=== PATIENT | female | born 1940 | race Caucasian/White ===

== ENCOUNTER 2025-03-22 08:07 | Outpatient (REF) | payer MEDICARE, SELFPAY ==
--- OUTSIDE RECORDS SUMMARY | 2025-03-22 08:12 | XMS_ITS | Clinical Summary ---
Author Organization [address] [place] [address] [place] [phone] Phone Care Team Providers Care Fish Hatchery Assistant Name Role Phone Truman Lassiter MD Primary Care Provider Allergies Active Allergy Reactions Criticality Noted Date Comments Atorvastatin 02/07/2020 Other Reaction(s): Hives/Urticaria Oxycodone-Acetaminophen Nausea And Vomiting 09/2019 Other Reaction(s): Hives/Urticaria Propofol High 02/07/2020 Other Reaction(s): Hives/Urticaria Medications alirocumab (Praluent Pen) 75 mg/mL pen injector Inject 1 mL into the skin every 14 days. 11/27/2023 Active clopidogreL (PLAVIX) 75 mg tablet Take 1 tablet (75 mg total) by mouth 1 (one) time each day. 03/23/2020 Active famotidine (PEPCID) 20 mg tablet Take 1 tablet (20 mg total) by mouth 2 (two) times a day. Active metoprolol tartrate (LOPRESSOR) 25 mg tablet Take 0.5 tablets (12.5 mg total) by mouth 2 (two) times a day. 12/11/2022 Active potassium chloride 20 mEq tablet extended release Take 1 tablet by mouth 1 (one) time each day. 09/14/2021 Active amLODIPine (NORVASC) 10 mg tablet Take 1 tablet (10 mg total) by mouth 1 (one) time each day. Active aspirin 81 mg EC tablet Take 1 tablet (81 mg total) by mouth 1 (one) time each day. Active calcium carbonate/vitam in D3 (CALCIUM WITH VITAMIN D3 ORAL) Take 1 Tab by mouth daily. Vit D 630 Active chlorthalidone (HYGROTON) 25 mg tablet Take 0.5 tablets (12.5 mg total) by mouth 1 (one) time each day. Active Active Problems Problem Noted Date Diagnosed Date Aortic valve stenosis 01/02/2023 Chest pain 01/02/2023 Coronary artery disease 01/02/2023 Assessment & Plan (01/25/2025 10:54 AM EDT): Orders: Lipid panel with reflex to direct LDL; Future BLA (dyspnea on exertion) 01/02/2023 Hypertension 01/02/2023 NSTEMI (non-ST elevated myoc ardial infarction) (CMS/HCC V24, CMS/HCC V28) 01/02/2023 Encounters Date Type Department Care Team Description 01/25/2025 9:50 AM EDT Office Visit [facility] - [address] [place] [phone] Patrick Mendez MD Coronary artery disease involving [place] coronary artery of [place] heart without angina pectoris (Primary Dx) from Last 3 Months Surgical History Surgery Date Site/Laterality Comments PARTIAL HYSTERECTOMY 1980 PROCEDURE: [place] SUPRACERVICAL ABDL HYSTER W/WO RMVL TUBE OVARY CARPAL TUNNEL RELEASE 1992 Bilateral PROCEDURE: [place] NEUROPLASTY &/TRANSPOS MEDIAN NRV CARPAL TUNNE TOTAL KNEE ARTHROPLASTY 1996 Right PROCEDURE: HISTORICAL TOTAL KNEE REPLACE HIP ARTHROPLASTY 2017 Right PROCEDURE: HISTORICAL HIP REPLACEMENT CHOLECYSTECTOMY 2011 PROCEDURE: OH CHOLECYSTECTOMY OTHER SURGICAL HISTORY PROCEDURE: OH TRANSCATHETER TRANSAPICAL REPLACEMT AORTIC VALVE OTHER SURGICAL HISTORY PROCEDURE: OH PRQ TRLUML CORONARY STENT W/ANGIO ONE ART/BRNCH AORTIC VALVE REPLACEMENT PROCEDURE: HISTORICAL AORTIC VALVE REPL Medical History Medical History Date Comments Family history of cardiovascular disease DX:Family history of cardiovascular disease Undiagnosed cardiac murmurs DX:U ndiagnosed cardiac murmurs Hypercholesterolemia DX:Hypercho lesterolemia Essential hypertension DX:Essent ial hypertension 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 Sohail Fink [facility] [place], seen on [address], [facility] [place] [phone] patient also seen by Dr. Quintanilla of the [facility] on [address] * Chronic cough DX:Chronic cough GERD (gastroesophageal reflux disease) DX:GERD (gastroesophageal reflux disease) Headache DX:Headache Class 1 obesity DX:Class 1 obesi ty Osteoarthritis of knee DX:Osteoa rthritis of knee Pulmonary nodule DX:Pulmonary no dule Family History Medical History Relation Name Comments No Known Problems Daughter 1 No Known Problems Daughter 2 Heart attack Father 46 Other: Diabetes Mellitus, Type II Father 46 No Known Problems Mother 90 CABG Sister cipriano ho Coronary artery disease Sister cipriano ho No Known Problems Son Relation Name Status Comments Daughter 1 Alive Daughter 2 Alive Father 46 Mother 90 Sister cipriano ho Alive Son Alive Social History Tobacco Use Types Packs/Day Years Used Date Smoking Tobacco: Never Smokeless Tobacco: Never Alcohol Use Standard Drinks/Week Comments Yes 0 (1 standard drink = 0.6 oz pur e alcohol) Comments Unknown Sex and Gender Information Value Date Recorded Sex Assigned at Not on file Legal Sex Female 5:53 AM EST Gender Identity Not on file Sexual Orientation Not on file Obstetrics History Last Filed Vital Signs Vital Sign Reading Time Taken Comments Blood Pressure 130/70 01/25/2025 10:05 AM EDT Pulse 92 01/25/2025 10:05 AM EDT Temperature - - Respiratory Rate - - Oxygen Saturation 95% 01/25/2025 10:05 AM EDT Inhaled Oxygen Concentration - - Weight 88.9 kg (196 lb) 01/25/2025 10:05 AM EDT Height 162.6 cm (5' 4 ) 01/25/2025 10:05 AM EDT Body Mass Index 33.64 01/25/2025 10:05 AM EDT Plan of Treatment Upcoming Encounters Date Type Department Care Team (Late st Contact Info) Description 05/16/2025 9:30 AM EDT Office Visit [facility] - [place] [address] [place] [address] Sohail Mares MD [address] [place] [place] [address] 08/17/2025 10:10 AM EST Office Visit [facility] - [address] [place] [address] Kiara Comer NP [address] [place] [address] Health Maintenance Due Date Last Done Comments DTaP,Tdap,and Td Vaccines (1 - Tdap) 1961 Zoster Vaccines (1 of 2) 1992 RSV Immunization Adult Patients (1 - 1-dose 75+ series) 2017 Depression Screening 08/11/2022 Falls Risk Assessment 08/11/2022 Medicare Annual Wellness Visit 08/11/2022 Osteoporosis Screening (Bone Density Screening) 08/11/2022 Social Influencers of Health Screening 08/11/2022 Hypertension/CHF/CAD Annual BMP Blood Test 10/07/2023 03/23/2020, 03/22/2020, 03/21/2020, Additional history exists COVID-19 Vaccine ( season) 2024 06/16/2024, 06/10/2023, 07/17/2022, Additional history exists Influenza Vaccine (#1) 2025 , 05/21/2023, 07/03/2022, Additional history exists Cholesterol Screening (Lipid Panel) 01/25/2030 01/25/2025 Pneumococcal Vaccine: 50+ Years Completed 06/19/2017, 05/18/2016 HIB Vaccines Aged Out No longer eligi ble based on patient's age to complete this topic HPV Vaccines Aged Out No longer eligi ble based on patient's age to complete this topic Hepatitis A Vaccines Aged Out No long er eligible based on patient's age to complete this topic Hepatitis B Vaccines Aged Out No long er eligible based on patient's age to complete this topic IPV Vaccines Aged Out No longer eligi ble based on patient's age to complete this topic MMR Vaccines Aged Out No longer eligi ble based on patient's age to complete this topic Meningococcal ACWY Vaccine Aged Out N o longer eligible based on patient's age to complete this topic Meningococcal B Vaccine Aged Out No l onger eligible based on patient's age to complete this topic RSV Immunization Patients Under 20 months Aged Out No longer eligible based on patient's age to complete this topic Varicella Vaccines Aged Out No longer eligible based on patient's age to complete this topic Medical Devices Implanted Type Area Wealth Management Director Device Identifier Shelf Expiration Date Model / Serial / Lot Valve Heart Radha 3 With Commander System 23mm Tt - [id number] - [id number] Implanted:Qty: 1 on 03/21/2020 by Trevor Fernández MD N/A: Heart [employer] JANET 07/06/2021 [id number] / [id number] / Description:Aortic Valve Procedures Procedure Name Priority Date/Time Associated Diagnosis Comments LIPID PANEL WITH REFLEX TO DIRECT LDL Routine 01/25/2025 11:01 AM EDT Coronary artery disease involving [place] coronary artery of [place] heart without angina pectoris from Last 3 Months Results * (ABNORMAL) Lipid panel with reflex to direct LDL (01/25/2025 11:01 AM EDT) Cholesterol 101 0 - 200 mg/dL LAB CHEMISTRY METHOD 01/25/2025 1:59 PM [facility] Triglycerides 178(H) 0 - 150 mg/dL LAB CHEMISTRY METHOD 01/25/2025 1:59 PM [facility] HDL 39(L) >=40 mg/dL LAB CHEMISTRY METHOD 01/25/2025 1:59 PM [facility] LDL Calculated 26 0 - 100 mg/dL LAB CHEMISTRY METHOD 01/25/2025 1:59 PM [facility] VLDL Cholesterol Fadi 35.6 mg/dL LAB CHEMISTRY METHOD 01/25/2025 1:59 PM [facility] Non HDL Chol. (LDL+VLDL) 62 <145 mg/dL LAB CHEMISTRY METHOD 01/25/2025 1:59 PM [facility] Chol/HDL Ratio 2.6 0.0 - 4.4 LAB CHEMISTRY METHOD 01/25/2025 1:59 PM [facility] Blood Venous blood specimen / Unknown Venipuncture / Unknown 01/25/2025 11:01 AM EDT 01/25/2025 12:34 PM EDT us Patrick Mendez MD LAB BLOOD ORDERABLES Makenzie denise Result [facility] [address] [place] [address], [place] [phone] from Last 3 Months Insurance MEDICARE [facility] Advance Directives Documents on File Type Date Recorded Patient Motor Vehicle Operator Road Supervisor Expl anation Health Care Decision (hx) 06/18/2018 AD LINN DIRECTIVE Health Care Decision (hx) 06/18/2018 AD LINN DIRECTIVE Health Care Decision (hx) 06/18/2018 AD LINN DIRECTIVE Health Care Decision (hx) 06/18/2018 AD LINN DIRECTIVE Health Care Decision (hx) 06/18/2018 AD LINN DIRECTIVE Health Care Decision (hx) 06/18/2018 AD LINN DIRECTIVE Health Care Decision (hx) 06/18/2018 AD LINN DIRECTIVE Care Teams Fish Hatchery Assistant Relationship Specialty Start Date End Date Beneitone, Truman J, MD [address] [place] [address] PCP - General Internal Medicine 05/19/18
--- OUTSIDE RECORDS SUMMARY | 2025-03-22 08:12 | XMS_ITS | Clinical Summary ---
Author Organization [facility] Address [address] [place] [address] Care Team Providers Care Director Customer Name Role Phone Truman Lassiter MD Primary Care Provider [phone] Allergies Active Allergy Reactions Criticality Noted Date Comments Atorvastatin 03/02/2020 Oxycodone-Acetaminophen 03/02/2020 Propofol 03/02/2020 Medications Medication Sig Dispensed Refills Start Date End Date Status amLODIPine (NORVASC) tablet 2.5 mg Take 2.5 mg by mouth daily. 0 Active aspirin EC 81 MG tablet Take 81 mg by mouth daily. 0 Active Calcium Carbonate-Vitamin D (CALCIUM 500/D PO) Take by mouth daily. 0 Active Multiple Vitamins-Minerals (MULTIVITAMIN ADULTS PO) Take by mouth. 0 Active cetirizine (ZyrTEC) 10 MG tablet Take 10 mg by mouth daily. 0 Active pantoprazole (PROTONIX) 40 MG tablet Take 40 mg by mouth daily. 0 Active clopidogrel (PLAVIX) 75 MG tablet Take 1 tablet (75 mg total) by mouth daily. 30 tablet 0 03/23/2020 Active chlorthalidone (HYGROTON) 25 MG tablet Take 12.5 mg by mouth. 0 Active Active Problems Problem Noted Date Diagnosed Date Aortic stenosis, severe 03/21/2020 S/P TAVR (transcatheter aortic valve replacement ) 03/21/2020 S/P TAVR (transcatheter aortic valve replacement ) 03/21/2020 Overview: Angel Radha 23 S3 Social History Tobacco Use Types Packs/Day Years Used Date Smoking Tobacco: Never Smokeless Tobacco: Never Alcohol Use Standard Drinks/Week Comments Yes 0 (1 standard drink = 0.6 oz pur e alcohol) social Sex and Gender Information Value Date Recorded Sex Assigned at Female 02/03/2020 12:04 PM EDT Gender Identity Not on file Sexual Orientation Not on file Job Start Date Occupation Industry Not on file Not on file Not on file Last Filed Vital Signs Vital Sign Reading Time Taken Comments Blood Pressure 128/64 04/26/2020 3:25 PM EDT Pulse 77 03/23/2020 4:03 AM EDT Temperature 36.7 C (98.1 F) 03/23/2020 9:03 AM EDT Respiratory Rate 23 03/23/2020 4:03 AM EDT Oxygen Saturation 94% 03/23/2020 4:03 AM EDT Inhaled Oxygen Concentration - - Weight 86.2 kg (190 lb) 04/26/2020 3:25 PM EDT Height 165.1 cm (5' 5 ) 04/26/2020 3:25 PM EDT Body Mass Index 31.62 04/26/2020 3:25 PM EDT Plan of Treatment Health Maintenance Due Date Last Done Comments COVID-19 Vaccine (#1) 04/16/1941 Depression Screening 1954 BMI Counseling 1960 Preventative Health Evaluation 1960 DTap / Tdap / Td (1 - Tdap) 1961 Shingrix-Zoster Vaccine (1 of 2) 1992 Fall Risk Assessment 2007 Osteoporosis Screening (DEXA Scan) 2007 Pneumococcal Vaccine (1 of 1 - PCV) 2007 RSV Adult > 60+ Yrs or Pregn ant (1 - 1-dose 75+ series) 2017 Influenza Vaccine (#1) 2025 Hepatitis B Vaccines Aged Out No long er eligible based on patient's age to complete this topic RSV Ped < 20 months Aged Out No longe r eligible based on patient's age to complete this topic Medical Devices Implanted Type Area Workcell Operator Device Identifier Shelf Expiration Date Model / Serial / Lot Valve Heart Radha 3 With Commander System 23mm Tt - [id number] - [id number] Implanted:Qty: 1 on 03/21/2020 by Trevor Fernández MD at [facility] and Med N/A: Heart [employer] JANET 07/06/2021 [id number] / [id number] / Description:Aortic Valve Advance Directives For more information, please contact: [phone] Latest Code Status on File Code Status Date Activated Date Inactivated Comments Full Code 03/21/2020 2:14 PM 03/23/2020 4:43 PM This code status was ascertained in the following way: discussion with patient Code Status History Code Status Date Activated Date Inactivated Comments Full Code 03/21/2020 8:37 AM 03/21/2020 2:14 PM This code status was ascertained in the following way: discussion with patient . Care Teams Director Customer Relationship Specialty Start Date End Date Truman Lassiter MD [address] [place] [id number] PCP - General Internal Medicine 02/03/20
== END 2025-03-22 08:08 | disposition home or self-care (01) ==
LOC: HO.BBR 08:07
PROVIDERS: PCP Internal Medicine; Visit Provider Internal Medicine
DX: Z13.89 Encounter for screening for other disorder (principal)

== ENCOUNTER 2025-03-22 08:18 | Outpatient (REF) | payer MEDICARE, SELFPAY | END 2025-03-22 08:19 | disposition home or self-care (01) | LOC: HO.BBR 08:18 | PROVIDERS: Visit Provider Internal Medicine | DX: D45 Polycythemia vera (principal) | CPT/HCPCS: 85018; 99195 ==

== ENCOUNTER 2025-06-07 09:39 | Outpatient (REF) | payer MEDICARE, SELFPAY ==
--- OUTSIDE RECORDS SUMMARY | 2025-06-07 10:31 | XMS_ITS | Clinical Summary ---
Author Organization [facility] Address [address] [place] [address] Care Team Providers Care Dean Of Men Name Role Phone Truman Lassiter MD Primary Care Provider [phone]- [phone] Allergies Active Allergy Reactions Criticality Noted Date [...] this topic Medical Devices Implanted Type Area Pier Master Device Identifier Shelf Expiration Date Model / Serial / Lot Valve Heart Radha 3 With Commander System 23mm Tt - [id number] - [id number] Implanted:Qty: 1 on 03/21/2020 by Trevor Fernández MD at [facility] and Med N/A: Heart [employer] JANET 07/06/2021 [id number] / [id number] / Description:Aortic Valve Advance Directives For more information, please contact: [phone] Latest Code Status on File Code Status [...] way: discussion with patient . Care Teams Dean Of Men Relationship Specialty Start Date End Date Truman Lassiter MD [address] [place] [id number] PCP - General Internal Medicine 02/03/20
--- OUTSIDE RECORDS SUMMARY | 2025-06-07 10:31 | XMS_ITS | Encounter Summary ---
Author Organization [facility] Address [address] [place] [address] Care Team Providers Care Solid Waste Truck Driver Name Role Phone Truman Lassiter MD Primary Care Provider Reason for Visit * Reason Onset Date Comments Medication Problem 05/27/2025 Encounter Details Date Type Department Care Team (Late st Contact Info) Description 05/27/2025 Telephone [facility] - [facility] [address] [facility] [address] [place] [phone] Patrick Mendez MD [address] [place] [address] [place] [phone] Social History Tobacco Use Types Packs/Day Years Used Date Smoking Tobacco: Never Smokeless Tobacco: Never Alcohol Use Standard Drinks/Week Comments Yes 0 (1 standard drink = 0.6 oz pur e alcohol) Comments Unknown Sex and Gender Information Value Date Recorded Sex Assigned at Not on file Legal Sex Female 5:53 AM EST Gender Identity Not on file Sexual Orientation Not on file documented as of this encounter Ordered Prescriptions Prescription Sig Dispense Quantity Refills Last Filled Start Date End Date alirocumab (Praluent Pen) 75 mg/mL pen injector Inject 1 mL (75 mg total) under the skin every 14 (fourteen) days. 2 mL 3 05/30/2025 documented in this encounter Progress Notes * Claire Greco - 06/06/2025 4:55 PM EDT Patients spouse called said he has not received a call confirming prescription was faxed. Below message was relayed to him. Confirmed faxed number. * Brandt Nieto MA - 06/06/2025 11:56 AM EDT Re-faxing script to [phone]. Per pt's spouse request. * Anisa Dee - 06/06/2025 11:47 AM EDT Patients Yosvany is calling back for Praulent to be sent to [phone]. * Brandt Nieto MA - 06/06/2025 11:18 AM EDT Shankar from [facility] will cancel Praulent script. * Brandt Nieto MA - 06/06/2025 11:14 AM EDT I will call to cancel the script sent to [facility] as that was in error. I did fax a new scriptto [facility] on 05/30. Received confirmation via [facility] . I did state to pt he should follow up with [facility] today for status update. He agrees to do that and I will call [facility] to cancel script. * Rena Mendoza - 06/06/2025 10:36 AM EDT Patient's called and stated that the Praulent was sent to the wrong pharmacy. He said it was sent to [facility] in [place], [facility]. Patient's did not crop picker the prescription at [facility] because they were going to be charged $564. [facility] Patient only has 2 doses of medication left. He would like a call back at [phone]. * Brandt Nieto MA - 05/30/2025 4:08 PM EDT Pt's aware I faxed script to [facility]. * Brandt Nieto MA - 05/30/2025 1:37 PM EDTAddended by: BRANDT NIETO on: 05/30/2025 01:37 PM Modules accepted: Orders * Brandt Nieto MA - 05/30/2025 1:32 PM EDT It's all set. I sent a new script to [facility]. I will let them know. Thank you. * Madison Ovalle - 05/30/2025 11:05 AM EDT Juan Lees, I called [facility] and spoke to Jesica (05.30.25 @ 11:06am est) regarding this patient. It was explained that the patient needs a new prescription sent over. As I'm not clinical I'm unable to generate a new prescription in [facility] as the one currently was last reconciled in 2023. Once we have a newscript it can be faxed to . * Brandt Nieto MA - 05/30/2025 9:47 AM EDT Spoke to pt's Yosvany and he states he [facility] and they stated they would reach out to our office for a script. I do not see in the chart that they reached out. Is this something you can help with? Thank you. * Manny Reese - 05/27/2025 10:49 AM EDT Patients spouse is calling stating they called [facility] # and they were told Praluent medication would be sent. Patients spouse would like to speak with Brandt as to what the status of the medicationis. Please call [phone] documented in this encounter Plan of Treatment Upcoming Encounters Date Type Department Care Team (Late st Contact Info) Description 08/17/2025 10:10 AM EST Office Visit [facility] - [facility] [address] [facility] [address] [place] [phone] Kiara Comer NP [address] [place] [address] [place] [address] 11/14/2025 10:00 AM EDT Office Visit Primary [facility] - [place] [address] [place] [phone] Sohail Mares MD [address] [place] [address] documented as of this encounter Visit Diagnoses Not on filedocumented in this encounter Discontinued Medications Medication Sig Discontinue Reason Start Date End Da te alirocumab (Praluent Pen) 75 mg/mL pen injector Inject 1 mL into the skin every 14 days. Reorder 11/27/2023 05/30/2025 documented as of this encounter Additional Health Concerns Assessment Noted Time PHQ-9 Depression Total Score: 0 05/16/20 10:28 AM EDT A fall risk assessment has been complete d for the patient 05/16/2025 10:25 AM EDT documented as of this encounter Care Teams Solid Waste Truck Driver Relationship Specialty Start Date End Date Truman Lassiter MD [address] [place] [address] PCP - General Internal Medicine 05/19/18 documented as of this encounter
--- OUTSIDE RECORDS SUMMARY | 2025-06-07 10:31 | XMS_ITS | Clinical Summary ---
Author Organization [address] [place] [address] [place] [phone] Phone Care Team Providers Care Coat Finisher Name Role Phone Truman Lassiter MD Primary Care Provider Allergies Active Allergy Reactions Criticality Noted Date Comments Atorvastatin 02/07/2020 Other Reaction(s): Hives/Urticaria Oxycodone-Acetaminophen Nausea And Vomiting 09/2019 Other Reaction(s): Hives/Urticaria Propofol High 02/07/2020 Other Reaction(s): Hives/Urticaria Medications clopidogreL (PLAVIX) 75 mg tablet Take 1 tablet (75 mg total) by mouth 1 (one) time each day. 0 Active famotidine (PEPCID) 20 mg tablet Take 1 tablet (20 mg total) by mouth 2 (two) times a day. Active metoprolol tartrate (LOPRESSOR) 25 mg tablet Take 0.5 tablets (12.5 mg total) by mouth 2 (two) times a day. 3 Active potassium chloride 20 mEq tablet extended release Take 1 tablet by mouth 1 (one) time each day. 2 Active amLODIPine (NORVASC) 10 mg tablet Take [...] mouth 1 (one) time each day. Active alirocumab (Praluent Pen) 75 mg/mL pen injector Inject 1 mL (75 mg total) under the skin every 14 (fourteen) days. 2 mL 3 5 Active alirocumab (Praluent Pen) 75 mg/mL pen injector Inject 1 mL into the skin every 14 days. 4 05/30/20 25 Discontinu ed(Reorder ) Active Problems Problem Noted Date Diagnosed Date Aortic valve stenosis 01/02/2023 Chest pain 01/02/2023 Coronary artery disease 01/02/2023 Assessment & Plan (01/25/2025 10:54 AM EDT): Orders: Lipid panel with reflex to direct LDL; Future BAL (dyspnea on exertion) 01/02/2023 Hypertension 01/02/2023 Assessment & Plan (05/17/2025 9:01 AM EDT): Stable Orders: Comprehensive metabolic panel; Future NSTEMI (non-ST elevated myoc ardial infarction) (CMS/HCC V24, CMS/HCC V28) 01/02/2023 Encounters Date Type Department Care Team Description 05/27/2025 Telephone [facility] [address] [place] [phone] Patrick Mendez MD 05/17/2025 Telephone [facility] - [address] [place] [address] Nabeel Nieto MA 05/16/2025 9:30 AM EDT Office Visit Primary Care - [address] [phone] Sohail Mares MD Medicare annual wellness visit, subsequent (Primary Dx); Primary hypertension; Asymptomatic postmenopausal state from Last 3 Months Immunizations Immunization Administration Dates Next Due Influenza Quadravalent, 0.5ml (Fluad) 65yo and o lder 05/21/2023 Influenza Quadravalent, 0.5m l (Fluzone High-dose) 65yo and older 07/03/2022 Influenza Whole 06/13/2020 Influenza trivalent, 0.5mL (Fluad) 65yo and olde r 05/19/2024 Influenza trivalent, with pr eservative (Fluzone; Afluria) 6mo and older 08/09/2021 Pneumococcal conjugate 13 va lent (Prevnar 13, PCV13) 2mo and older 05/18/2016,05/18/2016 Pneumococcal polysaccharide 23 valent (Pneumovax 23) 2yo and older 06/19/2017,06/19/2017 SARS-COV-2 (COVID-19) Vaccine, Unspecified 07/17 Surgical History Surgery Date Site/Laterality Comments PARTIAL HYSTERECTOMY 1980 PROCEDURE: NV SUPRACERVICAL ABDL HYSTER W/WO RMVL TUBE OVARY CARPAL TUNNEL RELEASE 1992 Bilateral PROCEDURE: NV NEUROPLASTY &/TRANSPOS MEDIAN NRV CARPAL TUNNE TOTAL KNEE ARTHROPLASTY 1996 Right PROCEDURE: HISTORICAL TOTAL KNEE REPLACE HIP ARTHROPLASTY 2017 Right PROCEDURE: HISTORICAL HIP REPLACEMENT CHOLECYSTECTOMY 2011 PROCEDURE: NV CHOLECYSTECTOMY OTHER SURGICAL HISTORY PROCEDURE: NV TRANSCATHETER TRANSAPICAL REPLACEMT AORTIC VALVE OTHER SURGICAL HISTORY PROCEDURE: NV PRQ TRLUML CORONARY STENT W/ANGIO ONE ART/BRNCH [...] F[facility] of [facility], seen on [address], [facility] [place] [phone] patient also seen by Dr. Quintanilla of the [facility] on [address] * Chronic cough DX:Chronic cough GERD (gastroesophageal [...] cipriano ho Coronary artery disease Sister cipriano [place] No Known Problems Son Relation Name Status [...] Sign Reading Time Taken Comments Blood Pressure 123/74 05/16/2025 9:42 AM EDT Pulse 69 05/16/2025 9:42 AM EDT Temperature - - Respiratory Rate 16 05/16/2025 9:42 AM EDT Oxygen Saturation 95% 05/16/2025 9:42 AM EDT Inhaled Oxygen Concentration - - Weight 89.4 kg (197 lb) 05/16/2025 9:42 AM EDT Height 162.6 cm (5' 4 ) 05/16/2025 9:42 AM EDT Body Mass Index 33.81 05/16/2025 9:42 AM EDT Plan of Treatment Upcoming Encounters Date Type Department Care Team (Late st Contact Info) Description 08/17/2025 10:10 AM EST Office Visit [facility] [address] [facility] [address] [place] [phone] Kiara Comer NP [address] [place] [address] [place] [phone] 11/14/2025 10:00 AM EDT Office Visit Primary Care - [place] [address] [place] [address] Sohail Mares MD [address] [place] [address] Health Maintenance Due Date Last Done Comments DTaP,Tdap,and Td Vaccines (1 - Tdap) 1961 Zoster Vaccines (1 of 2) 1992 RSV Immunization Adult Patients (1 - 1-dose 75+ series) 2017 Osteoporosis Screening (Bone Density Screening) 08/11/2022 Social Influencers of Health Screening 08/11/2022 COVID-19 Vaccine ( season) 2025 06/16/2024, 06/10/2023, 07/17/2022, Additional history exists Influenza Vaccine (#1) 2025 , 05/21/2023, 07/03/2022, Additional history exists Falls Risk Assessment 05/16/2026 05/16/2025 Hypertension/CHF/CAD Annual BMP Blood Test 05/16/2026 05/16/2025, 03/23/2020, 03/22/2020, Additional history exists Medicare Annual Wellness Visit 05/16/2026 05/16/2025 Cholesterol Screening (Lipid Panel) 01/25/2030 01/25/2025 Pneumococcal Vaccine: 50+ Years Completed 06/19/2017, 06/19/2017, 05/18/2016, Additional history exists Depression Screening Completed 05/16/2025 HIB Vaccines Aged Out No longer eligi [...] this topic Medical Devices Implanted Type Area Bpm Solution Architect Device Identifier Shelf Expiration Date Model / Serial / Lot Valve Heart Radha 3 With Commander System 23mm Tt - [id number] - [id number] Implanted:Qty: 1 on 03/21/2020 by Trevor Fernández MD N/A: Heart [employer] 07/06/2021 [id number] / [id number] / Description:Aortic Valve Procedures Procedure Name Priority Date/Time Associated Diagnosis Comments COMPREHENSIVE METABOLIC PANEL Routine 05/16/2025 10:46 AM EDT Primary hypertension LIPID PANEL WITH REFLEX TO DIRECT LDL Routine 01/25/2025 11:01 AM EDT Coronary artery disease involving [place] coronary artery of [place] heart without angina pectoris from Last 3 Months or Most Recently Relevant to Health Maintenance Results * (ABNORMAL) Comprehensive metabolic panel (05/16/2025 10:46 AM EDT) Sodium 140 135 - 145 mmol/L LAB CHEMISTRY METHOD 05/16/2025 2:[address] [facility] Potassium 4.4 3.5 - 5.1 mmol/L LAB CHEMISTRY METHOD 05/16/2025 2:[address] [facility] Chloride 98 98 - 107 mmol/L LAB CHEMISTRY METHOD 05/16/2025 2:[address] [facility] CO2 30 24 - 32 mmol/L LAB CHEMISTRY METHOD 05/16/2025 2:[address] [facility] Anion Gap 12 5 - 14 LAB CHEMISTRY METHOD 05/16/2025 2:[address] [facility] Glucose 58(L) 70 - 199 mg/dL LAB CHEMISTRY METHOD 05/16/2025 2:[address] [facility] BUN 20(H) 7 - 17 mg/dL LAB CHEMISTRY METHOD 05/16/2025 2:[address] [facility] Creatinine 0.80 0.50 - 1.00 mg/dL LAB CHEMISTRY METHOD 05/16/2025 2:[address] [facility] eGFR 74 >=60 mL/min/1. 73m2 LAB CHEMISTRY METHOD 05/16/2025 2:[address] [facility] Comment:Calculation based on the Chronic Kidney Disease Epidemiology Collaboration (CKD-EPI) equation refit without adjustment for race. BUN/Creatinine Ratio 25.0(H) 12.0 - 20.0 LAB CHEMISTRY METHOD 05/16/2025 2:[address] [facility] Calcium 9.4 8.4 - 10.2 mg/dL LAB CHEMISTRY METHOD 05/16/2025 2:[address] [facility] AST (SGOT) 20 5 - 40 unit/L LAB CHEMISTRY METHOD 05/16/2025 2:[address] [facility] ALT (SGPT) 15 7 - 52 unit/L LAB CHEMISTRY METHOD 05/16/2025 2:[address] [facility] Alkaline Phosphatase 86 34 - 104 unit/L LAB CHEMISTRY METHOD 05/16/2025 2:[address] [facility] Total Protein 7.9 6.4 - 8.5 g/dL LAB CHEMISTRY METHOD 05/16/2025 2:[address] [facility] Albumin 4.6 3.5 - 5.0 g/dL LAB CHEMISTRY METHOD 05/16/2025 2:[address] [facility] Total Bilirubin 0.7 0.3 - 1.0 mg/dL LAB CHEMISTRY METHOD 05/16/2025 2:[address] [facility] Blood Venous blood specimen / Unknown Venipuncture / Unknown 05/16/2025 10:46 AM EDT 05/16/2025 10:46 AM EDT us Sohail Mares MD LAB BLOOD ORDERABLES Final R esult [facility] [address] [place] [address], [place] [phone] * (ABNORMAL) Lipid panel with reflex to direct LDL (01/25/2025 11:01 AM EDT) Cholesterol 101 0 - 200 mg/dL LAB CHEMISTRY METHOD 01/25/2025 1:59 PM EDT [facility] Triglycerides 178(H) 0 - 150 mg/dL LAB CHEMISTRY METHOD 01/25/2025 1:59 PM EDT [facility] HDL 39(L) >=40 mg/dL LAB CHEMISTRY METHOD 01/25/2025 1:59 PM EDT [facility] LDL Calculated 26 0 - 100 mg/dL LAB CHEMISTRY METHOD 01/25/2025 1:59 PM EDT [facility] VLDL Cholesterol Fadi 35.6 mg/dL LAB CHEMISTRY METHOD 01/25/2025 1:59 PM EDT [facility] Non HDL Chol. (LDL+VLDL) 62 <145 mg/dL LAB CHEMISTRY METHOD 01/25/2025 1:59 PM EDT [facility] Chol/HDL Ratio 2.6 0.0 - 4.4 LAB CHEMISTRY METHOD 01/25/2025 1:59 PM EDT [facility] Blood Venous blood specimen / Unknown Venipuncture / Unknown 01/25/2025 11:01 AM EDT 01/25/2025 12:34 PM EDT us Patrick Mendez MD LAB BLOOD ORDERABLES Makenzie walker Result [facility] [address] [place] [address], from Last 3 Months or Most Recently Relevant to Health [place] [phone] MEDICARE [facility] Advance Directives Documents on File Type Date Recorded Patient Captain/Airline Pilot Expl anation Health Care Decision (hx) 06/18/2018 AD LINN DIRECTIVE Health Care Decision (hx) 06/18/2018 AD LINN DIRECTIVE Health Care Decision (hx) 06/18/2018 AD LINN DIRECTIVE Health Care Decision (hx) 06/18/2018 AD LINN DIRECTIVE Health Care Decision (hx) 06/18/2018 AD LINN DIRECTIVE Health Care Decision (hx) 06/18/2018 AD LINN DIRECTIVE Health Care Decision (hx) 06/18/2018 AD LINN DIRECTIVE Care Teams Coat Finisher Relationship Specialty Start Date End Date Truman Lassiter MD [address] [place] [address] PCP - General Internal Medicine 05/19/18
--- OUTSIDE RECORDS SUMMARY | 2025-06-07 10:32 | XMS_ITS ---
[facility] Name [facility] Results Test Name/Text Value Interpretation Date Range Source ALT SerPl-cCnc 15.0 unit/L 05/16/2025 7 - 52 [facility] BUN/Creat SerPl 25.0 Above high normal 05/16/2025 12 - 20 [facility] ALP SerPl-cCnc 86.0 unit/L 05/16/2025 34 - 104 CT [facility] Potassium SerPl-sCnc 4.4 mmol/L 05/16/2025 3.5 - 5.1 [facility] Glucose SerPl-mCnc 58.0 mg/dL Below low normal 05/16/2025 70 - 199 [facility] CO2 SerPl-sCnc 30.0 mmol/L 05/16/2025 24 - 32 CT [facility] Prot SerPl-mCnc 7.9 g/dL 05/16/2025 6.4 - 8.5 CT_ [facility] Calcium SerPl-mCnc 9.4 mg/dL 05/16/2025 8.4 - 10.2 [facility] eGFRcr SerPlBld CKD-EPI 2020 74.0 mL/min/1.73m2 05/16/2025 - [facility] AST SerPl-cCnc 20.0 unit/L 05/16/2025 5 - 40 CT [facility] Albumin SerPl-mCnc 4.6 g/dL 05/16/2025 3.5 - 5 [facility] Sodium SerPl-sCnc 140.0 mmol/L 05/16/2025 135 - 14 5 [facility] Bilirub SerPl-mCnc 0.7 mg/dL 05/16/2025 0.3 - 1 [facility] Chloride SerPl-sCnc 98.0 mmol/L 05/16/2025 98 - 10 7 [facility] Anion Gap SerPl Calc-sCnc 12.0 05/16/2025 5 - 14 [facility] BUN SerPl-mCnc 20.0 mg/dL Above high normal 05/16/2025 7 - 1 7 [facility] Creat SerPl-mCnc 0.8 mg/dL 05/16/2025 0.5 - 1 CT [facility] History of Medication Use Medication Directions Dispensed Refills Start Date End Date Stat us alirocumab (Praluent Pen) 75 mg/mL pen injector Inject 1 mL into the skin every 14 days. 11/27/2023 active metoprolol tartrate (LOPRESSOR) 25 mg tablet Take 0.5 tablets (12.5 mg total) by mouth 2 (two) times a day. 12/11/2022 active potassium chloride 20 mEq tablet extended release Take 1 tablet by mouth 1 (one) time each day. 09/14/2021 active clopidogreL (PLAVIX) 75 mg tablet Take 1 tablet (75 mg total) by mouth 1 (one) time each day. 03/23/2020 active amLODIPine (NORVASC) 10 mg tablet Take 1 tablet (10 mg total) by mouth 1 (one) time each day. active aspirin 81 mg EC tablet Take 1 tablet (81 mg total) by mouth 1 (one) time each day. active calcium carbonate/vitamin D3 (CALCIUM WITH VITAMIN D3 ORAL) Take 1 Tab by mouth daily. Vit D 630 active chlorthalidone (HYGROTON) 25 mg tablet Take 0.5 tablets (12.5 mg total) by mouth 1 (one) time each day. active famotidine (PEPCID) 20 mg tablet Take 1 tablet (20 mg total) by mouth 2 (two) times a day. active Allergies Allergen Reaction Severity Comment Documented Date Source Statu s ATORVASTATIN Other Reaction(s): Hives/Urtica rashad 02/07/2020 [facility] active OXYCODONE-ACETAMIN OPHEN NAUSEA AND VOMITING Other Reaction(s): Hives/Urtica rashad 02/07/2020 [facility] active PROPOFOL Other Reaction(s): Hives/Urtica rashad 02/07/2020 [facility] active Problems Problem Status Onset Date Problem Type Date of Resolution Source Chest pain active 2023-01-02 Problem[address] [facility] Aortic valve stenosis active 2023-01-[address] Problem[address] [facility] NSTEMI (non-ST elevated myocardial infarction) ([facility] V24, [facility] V28) active 2023-01-02 ProblemAct [facility] Hypertension active 2023-01-02 Problem[address] [facility] Asymptomatic postmenopausal state active EncounterDiagnosisAct [facility] BAL (dyspnea on exertion) active 2023-01-02 Problem[address] [facility] Coronary artery disease active 2023-01-02 Problem[address] [facility] Immunizations Vaccine Date Source Lot Number Status Influenza trivalent, 0.5mL ( Fluad) 65yo and older 05/19/2024 [facility] [id number] completed Influenza Quadravalent, 0.5m l (Fluad) 65yo and older 05/21/2023 [facility] [id number] completed SARS-COV-2 (COVID-19) Vaccine, Unspecified 07/17/[address] [id number] completed Influenza Quadravalent, 0.5m l (Fluzone High-dose) 65yo and older 07/03/2022 [id number] comple jade Influenza trivalent, with pr eservative (Fluzone; Afluria) 6mo and older 08/09/2021 [facility] [id number] completed Influenza Whole 06/13/2020 [facility] UNK completed Pneumococcal polysaccharide 23 valent (Pneumovax 23) 2yo and older 06/19/2017 [facility] UNK com pleted Pneumococcal conjugate 13 va lent (Prevnar 13, PCV13) 2mo and older 05/18/2016 [facility] UNK complet ed Encounters Encounter Type Encounter Reason Primary Diagnosis Location Date Ambulatory Establish Care Encounter for ge marenal adult medical examination without abnormal findings [facility] 05/16/2025 Care Team Organization Name Specialty Phone Email Start Date End Da te [facility]
== END 2025-06-07 09:40 | disposition home or self-care (01) ==
LOC: HO.BBR 09:39
PROVIDERS: Visit Provider Internal Medicine
DX: D45 Polycythemia vera (principal)
CPT/HCPCS: 85014; 85018; 99195

== ENCOUNTER 2025-08-01 10:28 | Outpatient (REF) | payer MEDICARE, SELFPAY ==
--- OUTSIDE RECORDS SUMMARY | 2025-08-01 12:58 | XMS_ITS | Clinical Summary ---
Author Organization [address] [place] [address] [place] [phone] Phone Care Team Providers Care Stave Hewer Name Role Phone Sohail Mares MD Primary Care Provider + [phone] Allergies Active Allergy Reactions Criticality Noted Date Comments Atorvastatin 02/07/2020 Other Reaction(s): Hives/Urticaria Oxycodone-Acetaminophen Nausea And Vomiting 09/2019 Other Reaction(s): Hives/Urticaria Propofol High 02/07/2020 Other Reaction(s): Hives/Urticaria Medications famotidine (PEPCID) 20 mg tablet Take 1 [...] under the skin every 14 (fourteen) days. Active clopidogreL (PLAVIX) 75 mg tablet Take 1 tablet (75 mg total) by mouth 1 (one) time each day. 0 07/25/20 25 Discontinu ed(Therapy completed) Active Problems Problem Noted Date Diagnosed Date Aortic valve stenosis 01/02/2023 Assessment & Plan (07/25/2025 9:06 AM EST): Status post valve replacement as outlined above. She is euvolemic on exam. Can consider updating routine surveillance echocardiogram prior to her next in office visit in 6 months. Chest pain 01/02/2023 Coronary artery disease 01/02/2023 Assessment & Plan (07/25/2025 9:06 AM EST): She denies any anginal symptoms. She will continue on aspirin, beta-bonilla and Praluent. Goal LDL less than 70. Instructed to call 911 or go to the emergency room should the patient begin to experience chest pain or pressure lasting greater than 10 minutes does not resolve with rest. Orders: ECG 12 lead Assessment & Plan (01/25/2025 10:54 AM EDT): Orders: Lipid panel with reflex to direct LDL; Future BAL (dyspnea on exertion) 01/02/2023 Assessment & Plan (07/25/2025 9:06 AM EST): Chronic and stable. Will update her echocardiogram prior to next office visit. Hypertension 01/02/2023 Assessment & Plan (07/25/2025 9:06 AM EST): Acceptable during today's exam with a reading of 128/74. She will continue on her current dose of amlodipine and chlorthalidone. Educated on the importance of diet lifestyle to help further assist in reducing blood pressure. The patient was encouraged to follow low-salt low-fat diet, make purposeful strides towards weight loss, and engage in routine aerobic exercise as tolerated. Assessment & Plan (05/17/2025 9:01 AM EDT): Stable Orders: Comprehensive metabolic panel; Future NSTEMI (non-ST elevated myoc ardial infarction) ([facility] V24, [facility] V28) 01/02/2023 Encounters Date Type Department Care Team Description 08/01/2025 Telephone [facility] Cardiology [facility] [address] [place] [address] Kiara Comer NP 07/25/2025 8:10 AM EST Office Visit [facility] [address] [place] [address] Kiara Comer NP Coronary artery disease, unspecified vessel or lesion type, unspecified whether angina present, unspecified whether pilot station or transplanted heart (Primary Dx); BAL (dyspnea on exertion); Aortic valve stenosis, etiology of cardiac valve disease unspecified; Primary hypertension 07/18/2025 Telephone [facility] [address] [place] [address] Patrick Mendez MD 05/27/2025 Telephone [facility] [address] [place] [address] Patrick Mendez MD 05/17/2025 Telephone [facility] [address] [place] [address] Nabeel Nieto [place] 05/16/2025 9:30 AM EDT Office Visit Primary Care - [address] [address] Sohail Mares MD Medicare annual [...] Date Site/Laterality Comments PARTIAL HYSTERECTOMY 1980 PROCEDURE: GA SUPRACERVICAL ABDL HYSTER W/WO RMVL TUBE OVARY CARPAL TUNNEL RELEASE 1992 Bilateral PROCEDURE: GA NEUROPLASTY &/TRANSPOS MEDIAN NRV CARPAL TUNNE TOTAL KNEE ARTHROPLASTY 1996 Right PROCEDURE: HISTORICAL TOTAL KNEE REPLACE HIP ARTHROPLASTY 2017 Right PROCEDURE: HISTORICAL HIP REPLACEMENT CHOLECYSTECTOMY 2011 PROCEDURE: GA CHOLECYSTECTOMY OTHER SURGICAL HISTORY PROCEDURE: GA TRANSCATHETER TRANSAPICAL REPLACEMT AORTIC VALVE OTHER SURGICAL HISTORY PROCEDURE: GA PRQ TRLUML CORONARY STENT W/ANGIO ONE ART/BRNCH [...] [facility], seen on [address], [facility] [place] [address] patient also seen by Dr. Quintanilla of the [facility] on [address] * Chronic cough DX:Chronic cough GERD (gastroesophageal [...] Sign Reading Time Taken Comments Blood Pressure 128/74 07/25/2025 8:05 AM EST Pulse 72 07/25/2025 8:05 AM EST Temperature - - Respiratory Rate 16 05/16/2025 9:42 AM EDT Oxygen Saturation 98% 07/25/2025 8:05 AM EST Inhaled Oxygen Concentration - - Weight 89.8 kg (198 lb) 07/25/2025 8:05 AM EST Height 165.1 cm (5' 5 ) 07/25/2025 8:05 AM EST Body Mass Index 32.95 07/25/2025 8:05 AM EST Plan of Treatment Upcoming Encounters Date Type Department Care Team (Late st Contact Info) Description 11/14/2025 10:00 AM EDT Office Visit [facility] - [place] [address] [place] [address] Sohail Mares MD [address] [place] [address] Health Maintenance Due Date Last Done Comments DTaP,Tdap,and Td Vaccines (1 - Tdap) 1961 Zoster Vaccines (1 of 2) 1992 RSV Immunization Adult Patients (1 - 1-dose 75+ series) 2017 Osteoporosis Screening (Bone Density Screening) 08/11/2022 Social Influencers of Health Screening 08/11/2022 COVID-19 Vaccine ( season) 2026 07/04/2025, 06/16/2024, 06/10/2023, Additional history exists Falls Risk Assessment 05/16/2026 05/16/2025 Hypertension/CHF/CAD Annual BMP Blood Test 05/16/2026 05/16/2025, 03/23/2020, 03/22/2020, Additional history exists Medicare Annual Wellness Visit 05/16/2026 05/16/2025 Cholesterol Screening (Lipid Panel) 01/25/2030 01/25/2025 Pneumococcal Vaccine: 50+ Years Completed 06/19/2017, 06/19/2017, 05/18/2016, Additional history exists Depression Screening Completed 05/16/2025 Influenza Vaccine Completed 06/02/2025, , 05/21/2023, Additional history exists HIB Vaccines Aged Out No longer eligi [...] this topic Medical Devices Implanted Type Area Tile Applicator Device Identifier Shelf Expiration Date Model / Serial / Lot Valve Heart Radha 3 With Commander System 23mm Tt - [id number] - [id number] Implanted:Qty: 1 on 03/21/2020 by Trevor Fernández MD N/A: Heart [email or web address] 07/06/2021 [id number] / [id number] / Description:Aortic Valve Procedures Procedure Name Priority Date/Time Associated Diagnosis Comments ECG 12-LEAD Routine 07/25/2025 9:06 AM EST Coronary artery disease, unspecified vessel or lesion type, unspecified whether angina present, unspecified whether pilot station or transplanted heart COMPREHENSIVE METABOLIC PANEL Routine 05/16/2025 10:46 AM EDT Primary hypertension LIPID PANEL WITH REFLEX TO DIRECT LDL Routine 01/25/2025 11:01 AM EDT Coronary artery disease involving pilot station coronary artery of pilot station heart without angina pectoris from Last 3 Months or Most Recently Relevant to Health Maintenance Results * ECG 12 lead (07/25/2025 9:06 AM EST) Pathologist [facility] Ventricular Rate ECG 72 BPM GEMUSE Atrial Rate 72 BPM GEMUSE P-R Interval 182 ms GEMUSE QRS Duration 98 ms GEMUSE Q-T Interval 428 ms GEMUSE QTc 468 ms GEMUSE P Wave [place] 61 degrees GEMUSE R [place] -27 degrees GEMUSE T [place] 68 degrees GEMUSE ECG Interpretation Normal sinus rhythm Normal ECG When compared with ECG of 18-JUN-2018 13:46, No significant change was found Confirmed by MD Mendez Christopher ([id number]) on 07/28/2025 1:13:53 PM GEMUSE 07/25/2025 8:19 AM EST 07/28/2025 1:13 PM EST us Kiara Comer NP ECG ORDERABLES Edited Result - Final GEMUSE * (ABNORMAL) Comprehensive metabolic panel (05/16/2025 10:46 AM EDT) Pathologist [facility] Sodium 140 135 - 145 mmol/L LAB CHEMISTRY METHOD 05/16/2025 2:43 PM EDT [facility] Potassium 4.4 3.5 - 5.1 mmol/L LAB CHEMISTRY METHOD 05/16/2025 2:43 PM EDT [facility] Chloride 98 98 - 107 mmol/L LAB CHEMISTRY METHOD 05/16/2025 2:43 PM EDT [facility] CO2 30 24 - 32 mmol/L LAB CHEMISTRY METHOD 05/16/2025 2:43 PM EDT [facility] Anion Gap 12 5 - 14 LAB CHEMISTRY METHOD 05/16/2025 2:43 PM EDT [facility] Glucose 58(L) 70 - 199 mg/dL LAB CHEMISTRY METHOD 05/16/2025 2:43 PM EDT [facility] BUN 20(H) 7 - 17 mg/dL LAB CHEMISTRY METHOD 05/16/2025 2:43 PM EDT [facility] Creatinine 0.80 0.50 - 1.00 mg/dL LAB CHEMISTRY METHOD 05/16/2025 2:43 PM EDT [facility] eGFR 74 >=60 mL/min/1. 73m2 LAB CHEMISTRY METHOD 05/16/2025 2:43 PM EDT [facility] Comment:Calculation based on the Chronic Kidney Disease Epidemiology Collaboration (CKD-EPI) equation refit without adjustment for race. BUN/Creatinine Ratio 25.0(H) 12.0 - 20.0 LAB CHEMISTRY METHOD 05/16/2025 2:43 PM EDT [facility] Calcium 9.4 8.4 - 10.2 mg/dL LAB CHEMISTRY METHOD 05/16[facility]25 [facility] AST (SGOT) 20 5 - 40 unit/L LAB CHEMISTRY METHOD 05/16/2025 2:43 PM [facility] ALT (SGPT) 15 7 - 52 unit/L LAB CHEMISTRY METHOD 05/16/2025 2:43 PM EDT [facility] Alkaline Phosphatase 86 34 - 104 unit/L LAB CHEMISTRY METHOD 05/16/2025 2:43 PM EDT [facility] Total Protein 7.9 6.4 - 8.5 g/dL LAB CHEMISTRY METHOD 05/16/2025 2:43 PM EDT [facility] Albumin 4.6 3.5 - 5.0 g/dL LAB CHEMISTRY METHOD 05/16/2025 2:43 PM EDT [facility] Total Bilirubin 0.7 0.3 - 1.0 mg/dL LAB CHEMISTRY METHOD 05/16/2025 2:43 PM EDT [facility] Blood Venous blood specimen / Unknown Venipuncture / Unknown 05/16/2025 10:46 AM EDT 05/16/2025 10:46 AM EDT Sohail Mares MD LAB BLOOD ORDERABLES Final R esult [facility] [address] [place] [address], [place] [phone] * (ABNORMAL) Lipid panel with reflex to direct LDL (01/25/2025 11:01 AM EDT) Cholesterol 101 0 - 200 mg/dL LAB CHEMISTRY METHOD 01/25/2025 1:59 PM EDT [facility] Triglycerides 178(H) 0 - 150 mg/dL LAB CHEMISTRY METHOD 01/25/2025 1:59 PM EDT [facility] HDL 39(L) >=40 mg/dL LAB CHEMISTRY METHOD 01/25/2025 1:59 PM EDT [facility] LDL Calculated 26 0 - 100 mg/dL LAB CHEMISTRY METHOD 01/25/2025 1:59 PM EDT [facility] VLDL Cholesterol Fadi 35.6 mg/dL LAB CHEMISTRY METHOD 01/25/2025 1:59 PM EDT [facility] Non HDL Chol. (LDL+VLDL) 62 <145 mg/dL LAB CHEMISTRY METHOD 01/25/2025 1:59 PM EDT [facility] Chol/HDL Ratio 2.6 0.0 - 4.4 LAB CHEMISTRY METHOD 01/25/2025 1:59 PM EDT [facility] Blood Venous blood specimen / Unknown Venipuncture / Unknown 01/25/2025 11:01 AM EDT 01/25/2025 12:34 PM EDT Patrick Mendez MD LAB BLOOD ORDERABLES Makenzie l Result [facility] [address] [place] [address], from Last 3 Months or Most Recently Relevant to Health Maintenance Insurance [facility] Advance Directives Documents on File Type Date Recorded Patient Garment Form Assembler Expl anation Health Care Decision (hx) 06/18/2018 AD LINN DIRECTIVE Health Care Decision (hx) 06/18/2018 AD LINN DIRECTIVE Health Care Decision (hx) 06/18/2018 AD LINN DIRECTIVE Health Care Decision (hx) 06/18/2018 AD LINN DIRECTIVE Health Care Decision (hx) 06/18/2018 AD LINN DIRECTIVE Health Care Decision (hx) 06/18/2018 AD LINN DIRECTIVE Health Care Decision (hx) 06/18/2018 AD LINN DIRECTIVE Care Teams Stave Hewer Relationship Specialty Start Date End Date Sohail Mares MD [address] [place] [address] PCP - General Internal Medicine 07/25/25
--- OUTSIDE RECORDS SUMMARY | 2025-08-01 12:58 | XMS_ITS | Encounter Summary ---
Author Organization [facility] Address [address] [place] [address] Care Team Providers Care Ground Support Agent Name Role Phone Sohail Mares MD Primary Care Provider [phone] Reason for Visit * Reason Onset Date Comments Patient assistance for medicine form 08/01/2025 Encounter Details Date Type Department Care Team ([facility] st Contact Info) Description 08/01/2025 Telephone [facility] - [facility] [address] [facility] [address] [place] [address] Kiara Comer, GENEVA [address] [place] [address] [place] [phone] Social History Tobacco Use Types Packs/Day Years [...] on file documented as of this encounter Progress Notes * Tricia Walsh - 08/01/2025 11:17 AM EST Patient's dropped off patient assistance forms to be filled out for the patient. Patient isaware that Nabeel is on vacation so I told them that it will be given to the medical art therapist that is covering for him and working with Dr Mendez and Kiara Comer. They are aware 7-10 business daysfor any paper work to be filled out and returned. Please call [phone] when paper work is all set. Oliver envelope with papers was put in Riya B box who is covering for Nabeel today. documented in this encounter Plan of Treatment Upcoming Encounters Date Type Department Care Team (Late st Contact Info) Description 11/14/2025 10:00 AM EDT Office Visit Primary Care - [place] [address] [place] [address] Sohail Mares MD [address] [place] [address] documented as of this encounter Visit Diagnoses Not on filedocumented in this encounter Additional Health Concerns Assessment Noted Time PHQ-9 Depression Total Score: 0 05/16/20 10:28 AM EDT A fall risk assessment has been complete d for the patient 05/16/2025 10:25 AM EDT documented as of this encounter Care Teams Ground Support Agent Relationship Specialty Start Date End Date Sohail Mares MD [address] [place] [address] PCP - General Internal Medicine 07/25/25 documented as of this encounter
--- OUTSIDE RECORDS SUMMARY | 2025-08-01 12:58 | XMS_ITS | Clinical Summary ---
Author Organization [facility] Address [address] [place] [address] Care Team Providers Care Supervisor Mechanic Boilermaking Name Role Phone Truman Lassiter MD Primary Care Provider [phone] Allergies Active Allergy Reactions Criticality Noted Date [...] this topic Medical Devices Implanted Type Area Radiology Asst Device Identifier Shelf Expiration Date Model / Serial / Lot Valve Heart Radha 3 With Commander System 23mm Tt - [id number] - [id number] Implanted:Qty: 1 on 03/21/2020 by Trevor Fernández MD at [facility] and Med N/A: Heart [employer]ANET 07/06/2021 [id number] / [id number] / Description:Aortic Valve Advance Directives For more information, please contact: [phone] Latest Code Status on File Code Status [...] way: discussion with patient . Care Teams Supervisor Mechanic Boilermaking Relationship Specialty Start Date End Date Truman Lassiter MD [address] [place] [address] PCP - General Internal Medicine 02/03/20
== END 2025-08-01 10:29 | disposition home or self-care (01) ==
LOC: HO.BBR 10:28
PROVIDERS: Visit Provider Internal Medicine
DX: D45 Polycythemia vera (principal)
CPT/HCPCS: 85018; 99195